=== PATIENT | male | born 1960 | race Caucasian/White ===

== ENCOUNTER 2018-05-09 04:27 | Inpatient (IN) | payer OTHER ==
[~2018-05-09] VITALS: Ht 160 cm; Wt 77.5 kg
[2018-05-09 05:17] LABS: BASOPHILS # (AUTO) 0.2 X10'3 (0-0.2); BASOPHILS % (AUTO) 1.1 % (0-1); EOSINOPHILS # (AUTO) 0.6 X10'3 (0-0.9); EOSINOPHILS % (AUTO) 3.6 % (0-6); HEMATOCRIT 40.2 % (42.0-52.0); HEMOGLOBIN 13.8 g/dl (14.0-17.9); LYMPHOCYTES # (AUTO) 3.4 X10'3 (1.1-4.8); LYMPHOCYTES % (AUTO) 20.6 % (21-51); MEAN CORPUSCULAR HEMOGLOBIN 30.7 PG (27.0-31.0); MEAN CORPUSCULAR HGB CONC 34.3 % (33.0-36.5); MEAN CORPUSCULAR VOLUME 89.4 FL (78-98); MEAN PLATELET VOLUME 7.4 FL (7.4-10.4); MONOCYTES # (AUTO) 1.7 X10'3 (0-0.9); MONOCYTES % (AUTO) 10.4 % (2-12); NEUTROPHILS # (AUTO) 10.5 X10'3 (1.8-7.7); NEUTROPHILS % (AUTO) 64.3 % (42-75); PLATELET COUNT 342 X10'3 (140-440); RED BLOOD COUNT 4.49 X10'6 (4.70-6.10); RED CELL DISTRIBUTION WIDTH 13.3 % (11.5-14.5); WHITE BLOOD COUNT 16.3 X10'3 (4.5-11.0)
[2018-05-09] MEDS ORDERED: morphine 4 MG/ML inj SYRINge IV ONE (05:25)
[2018-05-09] MEDS ORDERED: clindamycin-Cleocin 900mg/D5W 50 ML IV ONE (05:25)
[2018-05-09] MEDS ORDERED: ondansetron/PF 4mg/2ml inj IV ONE (05:25)
[2018-05-09 05:27] LABS: INR 0.9 INR; PARTIAL THROMBOPLASTIN TIME 28 SECONDS (22-32); PROTHROMBIN TIME 9.4 SECONDS (9.0-12.0)
[2018-05-09 05:42] LABS: ALANINE AMINOTRANSFERASE 22 U/L (12-78); ALBUMIN 3.8 G/DL (3.4-5.0); ALBUMIN/GLOBULIN RATIO 1.1 (1.1-1.5); ALKALINE PHOSPHATASE 97 IU/L (46-116); ANION GAP 8 (8-16); ASPARTATE AMINO TRANSFERASE 16 U/L (10-37); BILIRUBIN,TOTAL 0.6 MG/DL (0.1-1.0); BLOOD UREA NITROGEN 17 MG/DL (7-18); BUN/CREATININE RATIO 15.2 (5.4-32.0); CALCIUM 9.2 MG/DL (8.5-10.1); CHLORIDE 104 MMOL/L (99-107); CREATININE 1.12 MG/DL (0.60-1.10); GLUCOSE 123 MG/DL (70-104); POTASSIUM 3.5 MMOL/L (3.5-5.1); SODIUM 140 MMOL/L (135-145); TOTAL CARBON DIOXIDE 28.1 MMOL/L (24-32); TOTAL PROTEIN 7.2 G/DL (6.4-8.2); eGFR 68 ML/MIN
[2018-05-09 05:48] LABS: CLARITY,URINE CLEAR (Clear); COLOR,URINE YELLOW (Yellow); GLUCOSE, URINE NEGATIVE (Neg); KETONES,URINE NEGATIVE (Neg); LEUKOCYTE ESTERASE ,URINE NEGATIVE (Neg); NITRITES, URINE NEGATIVE (Neg); OCCULT BLOOD,URINE TRACE-INTACT (Neg); PH,URINE 5.5 (4.8-8.0); PROTEIN,URINE NEGATIVE (Neg); UROBILINOGEN,URINE 0.2 E.U/dL (0.2-1.0)
[2018-05-09] MEDS ORDERED: NO HOME MEDS (05:54)
[2018-05-09 06:01] LABS: URINE AMPHETAMINE SCREEN POSITIVE (Neg); URINE BARBITUATE SCREEN NEGATIVE (Neg); URINE BENZODIAZEPINES SCREEN NEGATIVE (Neg); URINE CANNABINOID SCREEN NEGATIVE (Neg); URINE COCAINE SCREEN NEGATIVE (Neg); URINE METHADONE SCREEN NEGATIVE (Neg); URINE OPIATE SCREEN NEGATIVE (Neg); URINE PHENCYCLIDINE SCREEN NEGATIVE (Neg)
[2018-05-09 06:02] LABS: UA COLLECTION TYPE CLN CATCH MIDSTREAM
[2018-05-09 06:03] LABS: BACTERIA,URINE NONE SEEN /HPF (Neg); MUCUS STRANDS NONE SEEN /LPF (Neg); RBC,URINE 0-2 /HPF (0-2); SQUAMOUS EPITHELIAL CELL,UR FEW /LPF (FEW); WBC,URINE 0-4 /HPF (0-4)
[2018-05-09] MEDS ORDERED: acetaminophen 325mg tablet PO PRN (07:25)
[2018-05-09] MEDS ORDERED: potassium Cl 20 mEq SR tablet PO PRN ×2 (07:25)
[2018-05-09] MEDS ORDERED: potassium Cl 40MEQ/NS 500ml 500 ML IV PRN ×2 (07:25)
[2018-05-09] MEDS ORDERED: magnesium Cl slow-release 64mg tablet PO PRN (07:25)
[2018-05-09] MEDS ORDERED: magnesium 4gm in 100ml NS 100 ML IV PRN (07:25)
[2018-05-09] MEDS ORDERED: HYDROcodone/acetaminophen 10/325mg tab PO PRN (07:25)
[2018-05-09] MEDS ORDERED: magnesium 1gm/100ml D5W IVPB 50 ML IV PRN (07:25)
[2018-05-09] MEDS: K and/or MAG REPLACEMENT MC SCH (07:50)
[2018-05-09] MEDS: normal saline 1000ml 1,000 ML IV SCH ×3 (08:00→19:54)
[2018-05-09] MEDS: docusate sod 100mg capsule PO SCH ×2 (08:00→19:53)
[2018-05-09] MEDS: piperacillin/tazo 3.375gm/50ml 50 ML IV SCH ×3 (09:03→20:01)
[2018-05-09 09:52] VITALS: BP 124/82
[2018-05-09] MEDS: HYDROcodone/acetaminophen 5mg/325mg tablet PO PRN ×3 (13:51→23:22)
[2018-05-09 19:00] VITALS: BP 131/90
[2018-05-09] MEDS ORDERED: vancomycin/NS 1 GM ADD-VANTAGE 250 ML IV SCH (19:00)
[2018-05-09] MEDS: lactobacillus rhamnosus 10,000 MMU CELLS/CAPSULE PO SCH (19:53)
[2018-05-10] VITALS: BP 141/82
[2018-05-10] MEDS ORDERED: piperacillin/tazo 3.375gm/50ml 50 ML IV ONE (01:45)
[2018-05-10] MEDS: piperacillin/tazo 3.375gm/50ml 50 ML IV SCH ×4 (01:49→19:54)
[2018-05-10] MEDS: HYDROcodone/acetaminophen 5mg/325mg tablet PO PRN ×5 (03:43→21:35)
[2018-05-10 05:18] LABS: BASOPHILS # (AUTO) 0.1 X10'3 (0-0.2); BASOPHILS % (AUTO) 0.7 % (0-1); EOSINOPHILS # (AUTO) 0.7 X10'3 (0-0.9); EOSINOPHILS % (AUTO) 4.4 % (0-6); HEMATOCRIT 37.8 % (42.0-52.0); HEMOGLOBIN 12.9 g/dl (14.0-17.9); LYMPHOCYTES # (AUTO) 2.4 X10'3 (1.1-4.8); LYMPHOCYTES % (AUTO) 15.7 % (21-51); MEAN CORPUSCULAR HEMOGLOBIN 30.2 PG (27.0-31.0); MEAN CORPUSCULAR VOLUME 88.8 FL (78-98); MEAN PLATELET VOLUME 7.3 FL (7.4-10.4); MONOCYTES # (AUTO) 1.4 X10'3 (0-0.9); MONOCYTES % (AUTO) 9.5 % (2-12); NEUTROPHILS # (AUTO) 10.6 X10'3 (1.8-7.7); NEUTROPHILS % (AUTO) 69.7 % (42-75); PLATELET COUNT 306 X10'3 (140-440); RED BLOOD COUNT 4.26 X10'6 (4.70-6.10); RED CELL DISTRIBUTION WIDTH 13.1 % (11.5-14.5); WHITE BLOOD COUNT 15.3 X10'3 (4.5-11.0)
[2018-05-10 05:40] LABS: ANION GAP 7 (8-16); BLOOD UREA NITROGEN 9 MG/DL (7-18); BUN/CREATININE RATIO 9.2 (5.4-32.0); CALCIUM 8.1 MG/DL (8.5-10.1); CHLORIDE 105 MMOL/L (99-107); CREATININE 0.98 MG/DL (0.60-1.10); GLUCOSE 111 MG/DL (70-104); POTASSIUM 3.9 MMOL/L (3.5-5.1); SODIUM 140 MMOL/L (135-145); TOTAL CARBON DIOXIDE 28.5 MMOL/L (24-32); eGFR 79 ML/MIN
[2018-05-10 05:41] LABS: ALBUMIN 3.2 G/DL (3.4-5.0); MAGNESIUM 1.8 MG/DL (1.5-2.4)
[2018-05-10] MEDS: normal saline 1000ml 1,000 ML IV SCH ×2 (06:52→17:41)
[2018-05-10 07:45] VITALS: BP 143/88
[2018-05-10] MEDS: lactobacillus rhamnosus 10,000 MMU CELLS/CAPSULE PO SCH ×2 (07:58→19:55)
[2018-05-10] MEDS: K and/or MAG REPLACEMENT MC SCH (08:00)
[2018-05-10] MEDS: docusate sod 100mg capsule PO SCH ×2 (08:00→19:56)
[2018-05-10] MEDS: vancomycin/NS 1 GM ADD-VANTAGE 250 ML IV SCH ×2 (10:34→19:55)
[2018-05-10 12:04] VITALS: BP 113/84
[2018-05-10] MEDS ORDERED: magnesium 1gm/100ml D5W IVPB 100 ML IV PRN (13:29)
[2018-05-10 20:00] VITALS: BP 143/88
[2018-05-11 00:17] VITALS: BP 138/90
[2018-05-11] MEDS: piperacillin/tazo 3.375gm/50ml 50 ML IV SCH ×2 (01:29→07:55)
[2018-05-11] MEDS: HYDROcodone/acetaminophen 5mg/325mg tablet PO PRN ×2 (01:30→07:57)
[2018-05-11 06:51] VITALS: BP 136/89
[2018-05-11] MEDS ORDERED: VANCOMYCIN LEVEL IV ONE (07:30)
[2018-05-11] MEDS: normal saline 1000ml 1,000 ML IV SCH (07:51)
[2018-05-11] MEDS: docusate sod 100mg capsule PO SCH (07:55)
[2018-05-11] MEDS: lactobacillus rhamnosus 10,000 MMU CELLS/CAPSULE PO SCH (07:55)
[2018-05-11] MEDS: K and/or MAG REPLACEMENT MC SCH (08:00)
[2018-05-11 08:41] LABS: BASOPHILS # (AUTO) 0.1 X10'3 (0-0.2); BASOPHILS % (AUTO) 0.5 % (0-1); EOSINOPHILS # (AUTO) 0.6 X10'3 (0-0.9); EOSINOPHILS % (AUTO) 3.9 % (0-6); HEMATOCRIT 37.6 % (42.0-52.0); LYMPHOCYTES # (AUTO) 2.1 X10'3 (1.1-4.8); LYMPHOCYTES % (AUTO) 13.8 % (21-51); MEAN CORPUSCULAR HEMOGLOBIN 30.7 PG (27.0-31.0); MEAN CORPUSCULAR HGB CONC 34.5 % (33.0-36.5); MEAN PLATELET VOLUME 7.4 FL (7.4-10.4); MONOCYTES # (AUTO) 1.5 X10'3 (0-0.9); MONOCYTES % (AUTO) 10.2 % (2-12); NEUTROPHILS # (AUTO) 10.6 X10'3 (1.8-7.7); NEUTROPHILS % (AUTO) 71.6 % (42-75); PLATELET COUNT 327 X10'3 (140-440); RED BLOOD COUNT 4.22 X10'6 (4.70-6.10); RED CELL DISTRIBUTION WIDTH 13.4 % (11.5-14.5); WHITE BLOOD COUNT 14.8 X10'3 (4.5-11.0)
[2018-05-11 08:48] LABS: ANION GAP 7 (8-16); BLOOD UREA NITROGEN 7 MG/DL (7-18); BUN/CREATININE RATIO 6.3 (5.4-32.0); CALCIUM 8.3 MG/DL (8.5-10.1); CHLORIDE 104 MMOL/L (99-107); CREATININE 1.12 MG/DL (0.60-1.10); GLUCOSE 154 MG/DL (70-104); MAGNESIUM 1.9 MG/DL (1.5-2.4); SODIUM 140 MMOL/L (135-145); TOTAL CARBON DIOXIDE 29.2 MMOL/L (24-32); VANCOMYCIN,TROUGH 9.4 UG/ML (6.0-14.0); eGFR 68 ML/MIN
[2018-05-11] MEDS ORDERED: vancomycin inj 1,250 MG in normal saline 250ml IV soln 250 ML IV SCH (10:00)
[2018-05-11 11:09] VITALS: BP 112/81
[2018-05-11] MEDS ORDERED: AMOX-580 PO (11:42)
[2018-05-12] MEDS ORDERED: VANCOMYCIN LEVEL IV ONE (21:30)
== END 2018-05-11 13:10 | disposition home or self-care (01) | DRG 918 ==
LOC: ER 04:29 → ED HOLD 07:21 → SUR 3N 09:39
PROVIDERS: ADMIT Internal Medicine; ATTEND Family Medicine
DX: T63.301A Toxic effect of unspecified spider venom, accidental (unintentional), initial encounter (principal); L03.211 Cellulitis of face; F15.10 Other stimulant abuse, uncomplicated; S00.86XA Insect bite (nonvenomous) of other part of head, initial encounter; Z87.891 Personal history of nicotine dependence
CPT/HCPCS: 36415; 80048; 80053; 80202; 80305; 81001; 83605; 83735; 84145; 85025; 85610; 85730; 87040; 87070; 96365; 99285; J2270; J2405; J2543; J3370; J3490; J7030